=== PATIENT | female | born 1995 | race Two or more races ===

== ENCOUNTER 2019-08-17 10:11 | Emergency (ER) | payer OTHER ==
[~2019-08-17] VITALS: Ht 165.1 cm; Wt 63.0 kg
== END 2019-08-17 14:59 | disposition home or self-care (01) ==
LOC: ER 10:11
DX: O20.0 Threatened abortion (principal)

== ENCOUNTER 2019-08-25 14:24 | Emergency (ER) | payer OTHER ==
[~2019-08-25] VITALS: Ht 165.1 cm; Wt 63.0 kg
[2019-08-25] MEDS ORDERED: PRENATAL TABLE1 EACH (14:32)
== END 2019-08-25 18:46 | disposition home or self-care (01) ==
LOC: ER 14:24
DX: O20.0 Threatened abortion (principal)

== ENCOUNTER → 2019-09-21 | Outpatient (CLI) | payer OTHER ==
[~2019-09-21] MED LIST: PRENATAL TABLE1 EACH
== END | disposition home or self-care (01) ==
LOC: PRENATAL 08:25
DX: O36.80X1 Pregnancy with inconclusive fetal viability, fetus 1 (principal); Z36.82 Encounter for antenatal screening for nuchal translucency

== ENCOUNTER 2020-03-05 03:45 | Inpatient (IN) | payer OTHER ==
[~2020-03-05] VITALS: Ht 165.1 cm; Wt 79.8 kg
[2020-03-05] MEDS ORDERED: IRON PO (04:07)
[2020-03-05] MEDS ORDERED: FOLIC ACID PO (04:07)
== END 2020-03-07 14:22 | disposition home or self-care (01) | DRG 785 ==
LOC: OB/GYN 03:45 → O/R 03:45 → LDR 03:45 → O/R 14:37 → OB/GYN 16:06
PROVIDERS: ADMIT Obstetrics & Gynecology Obstetrics
PROC: 0UB70ZZ Excision of Bilateral Fallopian Tubes, Open Approach (ICD-10-PCS; 2020-03-05)
PROC: 4A1HXFZ Monitoring of Products of Conception, Cardiac Rhythm, External Approach (ICD-10-PCS; 2020-03-05)
PROC: 10D00Z1 Extraction of Products of Conception, Low, Open Approach (ICD-10-PCS; principal; 2020-03-05 15:00)
DX: O62.1 Secondary uterine inertia (principal); Z37.0 Single live birth; Z3A.36 36 weeks gestation of pregnancy; Z30.2 Encounter for sterilization

== ENCOUNTER 2023-11-25 09:58 | Emergency (ER) | payer OTHER ==
[~2023-11-25] VITALS: Ht 165.1 cm; Wt 63.5 kg
[~2023-11-25 09:58] MED LIST changes: +FOLIC ACID PO; +IRON PO
[2023-11-25] MEDS ORDERED: NORFLEX100MG PO (15:03)
== END 2023-11-25 15:21 | disposition home or self-care (01) ==
LOC: ER 10:00
DX: M94.0 Chondrocostal junction syndrome [Tietze] (principal)